=== PATIENT | male | born 1960 | race African-American/Black ===

== ENCOUNTER 2019-03-22 10:17 | Observation (INO) | payer SELFPAY ==
--- NOTE | 2019-03-22 10:47 | ER Document Report ---
ED Medical Screen (RME) - General Chief Complaint: Vomiting Stated Complaint: VOMITING, LIGHTHEADED Time Seen by Provider: 03/22/19 10:43 Mode of Arrival: Ambulatory Information source: Patient Notes: Patient presents stating that he had abdominal pain since yesterday and had an episode of vomiting blood yesterday and noticed blood in his stool yesterday. Patient does report feeling lightheaded. Patient has not had any vomiting today and has not noted any blood in the stool today. Patient denies any fever. Patient does admit to drinking alcohol daily. I have greeted and performed a rapid initial assessment of this patient. A comprehensive ED assessment and evaluation of the patient, analysis of test results and completion of the medical decision making process will be conducted by additional ED providers. TRAVEL OUTSIDE OF THE [place] IN LAST 30 DAYS: No - Related Data Allergies/Adverse Reactions: No Known Allergies Allergy (Verified 03/22/19 10:39) Past Medical History - Immunizations Hx Diphtheria, Pertussis, Tetanus Vaccination: Yes Physical Exam - Vital signs Vitals: Temp Pulse Resp BP Pulse Ox 98.3 F 103 H 18 158/84 H 100 03/22/19 10:21 03/22/19 10:21 03/22/19 10:21 03/22/19 10:21 03/22/19 10:21 - Abdominal Tenderness: Tender - Epigastric Course - Vital Signs Vital signs: Temp Pulse Resp BP Pulse Ox 98.3 F 103 H 18 158/84 H 100 03/22/19 10:21 03/22/19 10:21 03/22/19 10:21 03/22/19 10:21 03/22/19 10:21
[2019-03-22] MEDS ORDERED: LIDOCAINE 2% VISCOUS SOLN 20 ML UDCUP PO ONE (11:08)
[2019-03-22] MEDS ORDERED: MAG HYDROX/AL HYDROX/SIMETH SUSP 30 ML UDCUP PO ONE (11:08)
[2019-03-22 11:22] LABS: AMORPHOUS SEDIMENT,URINE TRACE /HPF; APPEARANCE,URINE CLOUDY; BILIRUBIN,URINE NEGATIVE (NEGATIVE); COLOR,URINE YELLOW; GLUCOSE, URINE NEGATIVE (NEGATIVE); KETONES,URINE NEGATIVE (NEGATIVE); LEUKOCYTE ESTERASE,URINE NEGATIVE (NEGATIVE); NITRITE,URINE NEGATIVE (NEGATIVE); PROTEIN,URINE 30 mg/dL (NEGATIVE); URINE SPECIFIC GRAVITY 1.024
[2019-03-22 11:24] LABS: INTERNATIONAL RATION (INR) 1.05; PROTHROMBIN TIME 13.7 SEC (11.4-15.4)
[2019-03-22 11:25] LABS: PARTIAL THROMBOPLASTIN TIME 31.8 SEC (23.5-35.8)
[2019-03-22 11:39] LABS: ALBUMIN 3.7 g/dL (3.5-5.0); ALKALINE PHOSPHATASE 63 U/L (38-126); ANION GAP 5 (5-19); ASPARTATE AMINO TRANSFERASE 30 U/L (17-59); BILIRUBIN,DIRECT 0.1 mg/dL (0.0-0.4); BILIRUBIN,TOTAL 0.3 mg/dL (0.2-1.3); BLOOD UREA NITROGEN 18 mg/dL (7-20); CALCIUM 9.1 mg/dL (8.4-10.2); CARBON DIOXIDE 30 mmol/L (22-30); CHLORIDE 103 mmol/L (98-107); GLUCOSE 102 mg/dL (75-110); POTASSIUM 3.9 mmol/L (3.6-5.0); TOTAL PROTEIN 6.7 g/dL (6.3-8.2)
[2019-03-22 12:21] LABS: ABSOLUTE BASOPHILS # (AUTO) 0.1 10^3/uL (0.0-0.2); ABSOLUTE EOSINOPHILS # (AUTO) 0.1 10^3/uL (0.0-0.6); ABSOLUTE MONOCYTES (AUTO) 0.5 10^3/uL (0.1-1.4); ABSOLUTE NEUT (AUTO) 4.9 10^3/uL (1.7-8.2); HEMOGLOBIN 8.8 g/dL (13.5-17.0); TOTAL CELLS COUNTED % (AUTO) 100 %; WHITE BLOOD COUNT 7.4 10^3/uL (4.0-10.5)
[2019-03-22 12:23] LABS: ABSOLUTE LYMPHOCYTES (AUTO) 1.9 10^3/uL (0.5-4.7); BASOPHILS % (AUTO) 0.8 % (0-2); HEMATOCRIT 25.9 % (37.9-51.0); LYMPHOCYTES % (AUTO) 25.9 % (13-45); MEAN CORPUSCULAR HEMOGLOBIN 31.3 pg (27.0-33.4); MEAN CORPUSCULAR HGB CONC 33.8 g/dL (32.0-36.0); MEAN CORPUSCULAR VOLUME 93 fl (80-97); MONOCYTES % (AUTO) 6.5 % (3-13); PLATELET COUNT 241 10^3/uL (150-450); RED CELL DISTRIBUTION WIDTH 14.2 % (11.5-14.0); SEGMENTED NEUTROPHILS % (AUTO) 65.8 % (42-78)
[2019-03-22] MEDS ORDERED: MORPHINE SULFATE 10 MG/ML INJ IV ONE (16:45)
--- NOTE | 2019-03-22 16:47 | ER Document Report ---
ED General - General Chief Complaint: Vomiting Stated Complaint: VOMITING, LIGHTHEADED Time Seen by Provider: 03/22/19 10:43 Mode of Arrival: Ambulatory Notes: 58-year-old male presents with epigastric abdominal pain, nausea/vomiting, blood in stool, blood in emesis, and lightheadedness. Patient states started yester day. Patient describes blood in stool as dark and describes blood in emesis as dark. Patient states 30 pound loss and in the past 3 years without trying. Patient also states he has been taking 7 to 8 tablets of Jennifer-Denmark original daily for the past 2 years. Patient denies any chest pain, dyspnea, diarrhea, constipation fever, chills. Patient denies any history of blood transfusion. Patient denies any current nausea or vomiting. TRAVEL OUTSIDE OF THE [place] IN LAST 30 DAYS: No - Related Data Allergies/Adverse Reactions: No Known Allergies Allergy (Verified 03/22/19 10:39) Home Medications: Jennifer-seltzer Past Medical History - General Information source: Patient - Social History Smoking Status: Current Every Day Smoker Frequency of alcohol use: Heavy Drug Abuse: None Family History: Reviewed & Not Pertinent Patient has suicidal ideation: No Patient has homicidal ideation: No - Immunizations Hx Diphtheria, Pertussis, Tetanus Vaccination: Yes Review of Systems - Review of Systems Notes: Constitutional: Negative for fever. HENT: Negative for sore throat. Eyes: Negative for visual changes. Cardiovascular: Negative for chest pain. Respiratory: Negative for shortness of breath. Gastrointestinal: Positive for abdominal pain and vomiting and blood in emesis/stool. Negative for diarrhea constipation. Genitourinary: Negative for dysuria. Musculoskeletal: Negative for back pain. Skin: Negative for rash. Neurological: Positive for lightheadedness. Negative for headaches, weakness or numbness. 10 point ROS negative except as marked above and in HPI. Physical Exam - Vital signs Vitals: Temp Pulse Resp BP Pulse Ox 98.3 F 103 H 18 158/84 H 100 03/22/19 10:21 03/22/19 10:21 03/22/19 10:21 03/22/19 10:21 03/22/19 10:21 - Notes Notes: GENERAL: Well-appearing, well-nourished and in no acute distress. HEAD: Atraumatic, normocephalic. EYES: Extraocular movements intact, sclera anicteric, conjunctiva are normal. NECK: Normal range of motion, supple without lymphadenopathy or JVD. LUNGS: Breath sounds clear to auscultation bilaterally and equal. No wheezes rales or rhonchi. HEART: Regular rate and rhythm without murmurs, rubs or gallops. ABDOMEN: Soft, mild tenderness to epigastric area. No guarding, no rebound. No masses appreciated. EXTREMITIES: Normal range of motion, no pitting or edema. No clubbing or cyanosis. NEUROLOGICAL: Cranial nerves II through XII grossly intact. Normal speech, normal gait. PSYCH: Normal mood, normal affect. SKIN: Warm, Dry, normal turgor, no rashes or lesions noted. Course - Re-evaluation Re-evalutation: 03/22/19 58-year-old male presents with epigastric pain, nausea, vomiting, blood in emesis/stool, and lightheadedness. Patient reports weight loss of 30 pounds in 3 years and taking 7 to 8 tablets of Jennifer-Denmark daily for 2 years. Initial work-up done in triage shows a hemoglobin of 8.8 but is otherwise unremarkable. Patient has been here approximately 5 to 6 hours. Repeat CBC ordered. 03/22/19 17:12 EKG shows NSR at [address] elevation. 03/22/19 17:34 Per RN fecal hemoccult grossly dark tarry/positive. 03/22/19 18:[address] Veronica, surgicalist, who states he will consult once pt is admitted by medicine. 03/22/19 18:[address] Stoll who states he will pass along information to night time hospitalist, Dr. Enmanuel Yoon. 03/22/19 19:[address] Enmanuel Yoon who states orders are in and requests tele bed. - Vital Signs Vital signs: Temp Pulse Resp BP Pulse Ox 97.7 F 87 18 135/63 H 98 03/22/19 19:40 03/22/19 19:40 03/22/19 10:21 03/22/19 19:40 03/22/19 19:40 - Laboratory Result Diagrams: 03/22/19 17:23 03/22/19 11:00 Laboratory results interpreted by me: 11/25/19 11/25/19 11/25/19 11:00 11:00 17:23 RBC 2.80 L 2.63 L Hgb 8.8 L 8.3 L Hct 25.9 L 24.2 L RDW 14.2 H 14.3 H Urine Protein 30 H Urine Urobilinogen 2.0 H Discharge - Discharge Clinical Impression: Lower GI bleed Anemia Qualifiers: Anemia type: unspecified type Qualified Code(s): D64.9 - Anemia, unspecified Condition: Stable Disposition: ADMITTED INPATIENT Admitting Provider: Car (Hospitalist) Unit Admitted: Telemetry
--- NOTE | 2019-03-22 17:04 | RADIOLOGY REPORT (SQ) ---
EXAM DESCRIPTION: CHEST 2 VIEWS COMPLETED DATE/TIME: 03/22/2019 4:56 pm REASON FOR STUDY: hemoptysis COMPARISON: None. EXAM PARAMETERS: NUMBER OF VIEWS: two views TECHNIQUE: Digital Frontal and Lateral radiographic views of the chest acquired. RADIATION DOSE: NA LIMITATIONS: none FINDINGS: LUNGS AND PLEURA: No opacities, masses or pneumothorax. No pleural effusion. MEDIASTINUM AND HILAR STRUCTURES: No masses or contour abnormalities. HEART AND VASCULAR STRUCTURES: Heart normal size. No evidence for failure. BONES: No acute findings. HARDWARE: None in the chest. OTHER: No other significant finding. IMPRESSION: NO ACUTE RADIOGRAPHIC FINDING IN THE CHEST. TECHNICAL DOCUMENTATION: JOB ID: [id number] [employer]- All Rights Reserved Reading location - IP/workstation name: [email or web address]
[2019-03-22 17:43] LABS: HEMATOCRIT 24.2 % (37.9-51.0); HEMOGLOBIN 8.3 g/dL (13.5-17.0); MEAN CORPUSCULAR HEMOGLOBIN 31.7 pg (27.0-33.4); MEAN CORPUSCULAR HGB CONC 34.5 g/dL (32.0-36.0); MEAN CORPUSCULAR VOLUME 92 fl (80-97); PLATELET COUNT 228 10^3/uL (150-450); RED BLOOD COUNT 2.63 10^6/uL (4.35-5.55); RED CELL DISTRIBUTION WIDTH 14.3 % (11.5-14.0); WHITE BLOOD COUNT 6.3 10^3/uL (4.0-10.5)
[2019-03-22] MEDS ORDERED: PANTOPRAZOLE SODIUM 40 MG VIAL IV ONE (17:54)
[2019-03-22] MEDS ORDERED: HYDROMORPHONE HCL INJ/PF 2 MG/ML AMPULE IV ONE (18:03)
[2019-03-22] MEDS ORDERED: IPRATROPIUM/ALBUTEROL 0.5-2.5 MG/3 ML AMPUL NEB PRN (19:06)
[2019-03-22] MEDS ORDERED: NORMAL SALINE 1000 ML 1,000 ML IV SCH (19:15)
[2019-03-22 19:21] LABS: ABSOLUTE RETICS # 0.038 10^6/uL (0.028-0.122); RETICULOCYTE COUNT (AUTO) 1.43 % (0.66-2.85)
[2019-03-22 19:27] LABS: IRON(TIBC) 61.7 ug/dL (49-181)
[2019-03-22] MEDS: NORMAL SALINE 1000 ML 1,000 ML IV PRN (20:16)
[2019-03-22] MEDS ORDERED: DEXTROSE 50%-WATER 25 GM/50 ML DISP.SYRIN IV PRN ×2 (21:11)
[2019-03-22] MEDS ORDERED: DEXTROSE 40% GEL 15 GM TUBE PO PRN ×2 (21:11)
[2019-03-22] MEDS ORDERED: GLUCAGON,HUMAN RECOMB 1 MG INJ SUBCUT PRN (21:11)
--- NOTE | 2019-03-22 21:36 | PDOC CONSULTATION ---
Consultation Consult Date: 03/22/19 Attending physician:: REESE HURST Provider Consulted: PIA MIRANDA Consult reason:: GI bleed History of Present Illness Admission Date/PCP: 03/22/19 19:48 Patient complains of: Abdominal pain History of Present Illness: MARCO GILES is a 58 year old male Presents to the emerge department via ground rescue complaining of acute onset abdominal pain nausea, hematemesis and one episode of bloody bowel movement. Patient was seen in emergency department was hemodynamically stable, found to have a hemoglobin 8.3. Medicine was consulted, patient admitted to the hospital service with surgery consulting for blood loss anemia.. Patient has a 2-year history of a 25 pound weight loss, and anorexia. He denies previous GI bleed; he was told he has an ulcer but never had endoscopy. He takes no prescription medications. He has not had a colonoscopy. There is no family history of gastrointestinal malignancy. Past Medical History Past Medical History: HTN Past Surgical History Past Surgical History: Reports: None Social History Information Source: Patient Smoking Status: Current Every Day Smoker Frequency of Alcohol Use: Heavy Hx Recreational Drug Use: No Hx Prescription Drug Abuse: No Family History Family History: None, Reviewed & Not Pertinent Parental Family History Reviewed: No Children Family History Reviewed: No Sibling(s) Family History Reviewed.: No Medication/Allergy Home Medications: No Home Medications 03/22/19 Allergies/Adverse Reactions: No Known Allergies Allergy (Verified 03/22/19 10:39) Review of Systems Constitutional: PRESENT: as per HPI Eyes: ABSENT: visual disturbances Ears: ABSENT: hearing changes Cardiovascular: ABSENT: chest pain, dyspnea on exertion, edema, orthropnea, palpitations Respiratory: ABSENT: cough, hemoptysis Gastrointestinal: PRESENT: abdominal pain, hematemesis, melena Musculoskeletal: ABSENT: joint swelling Integumentary: ABSENT: rash, wounds Neurological: ABSENT: abnormal gait, abnormal speech, confusion, dizziness, focal weakness, syncope Psychiatric: ABSENT: anxiety, depression, homidical ideation, suicidal ideation Endocrine: ABSENT: cold intolerance, heat intolerance, polydipsia, polyuria Hematologic/Lymphatic: ABSENT: easy bleeding, easy bruising Physical Exam Vital Signs: Temp Pulse Resp BP Pulse Ox 97.7 F 87 18 135/63 H 98 03/22/19 19:40 03/22/19 19:40 03/22/19 10:21 03/22/19 19:40 03/22/19 19:40 Intake & Output 03/21/19 03/22/19 03/23/19 06:59 06:59 06:59 Weight 69.3 kg General appearance: PRESENT: no acute distress Head exam: PRESENT: normocephalic Eye exam: PRESENT: EOMI Mouth exam: PRESENT: dry mucosa Neck exam: PRESENT: full ROM Respiratory exam: PRESENT: clear to auscultation mary Cardiovascular exam: PRESENT: RRR Pulses: PRESENT: normal carotid pulses, normal radial pulses, normal femoral pulses, normal dorsalis pedis pul GI/Abdominal exam: PRESENT: other - epigastric tenderness; no rigidity no peritoneal signs no hernia. Rectal exam: PRESENT: deferred Extremities exam: PRESENT: full ROM Musculoskeletal exam: PRESENT: full ROM Neurological exam: PRESENT: oriented to person, oriented to place, oriented to time, oriented to situation Psychiatric exam: PRESENT: appropriate affect Skin exam: PRESENT: dry Results Laboratory Results: 03/22/19 17:23 03/22/19 11:00 03/22/19 03/22/19 03/22/19 11:00 11:00 11:00 WBC 7.4 RBC 2.80 L Hgb 8.8 L Hct 25.9 L MCV 93 MCH 31.3 MCHC 33.8 RDW 14.2 H Plt Count 241 Seg Neutrophils % 65.8 Retic Count (auto) Sodium 138.2 Potassium 3.9 Chloride 103 Carbon Dioxide 30 Anion Gap 5 BUN 18 Creatinine 0.80 Est GFR ( Amer) > 60 Glucose 102 Calcium 9.1 Iron TIBC % Saturation Ferritin Total Bilirubin 0.3 AST 30 Alkaline Phosphatase 63 Total Protein 6.7 Albumin 3.7 Lipase 78.6 Vitamin B12 Folate Urine Color YELLOW Urine Appearance CLOUDY Urine pH 8.0 Ur Specific [place] 1.024 Urine Protein 30 H Urine Glucose (UA) NEGATIVE Urine Ketones NEGATIVE Urine Blood NEGATIVE Urine Nitrite NEGATIVE Ur Leukocyte Esterase NEGATIVE Urine WBC (Auto) 1 Urine RBC (Auto) 0 Blood Type Antibody Screen 03/22/19 03/22/19 03/22/19 11:00 17:23 17:23 WBC 6.3 RBC 2.63 L Hgb 8.3 L Hct 24.2 L MCV 92 MCH 31.7 MCHC 34.5 RDW 14.3 H Plt Count 228 Seg Neutrophils % Retic Count (auto) 1.43 Sodium Potassium Chloride Carbon Dioxide Anion Gap BUN Creatinine Est GFR ( Amer) Glucose Calcium Iron TIBC % Saturation Ferritin Total Bilirubin AST Alkaline Phosphatase Total Protein Albumin Lipase Vitamin B12 Folate Urine Color Urine Appearance Urine pH Ur Specific [place] Urine Protein Urine Glucose (UA) Urine Ketones Urine Blood Urine Nitrite Ur Leukocyte Esterase Urine WBC (Auto) Urine RBC (Auto) Blood Type O POSITIVE Antibody Screen NEGATIVE 03/22/19 17:23 WBC RBC Hgb Hct MCV MCH MCHC RDW Plt Count Seg Neutrophils % Retic Count (auto) Sodium Potassium Chloride Carbon Dioxide Anion Gap BUN Creatinine Est GFR ( Amer) Glucose Calcium Iron 61.7 TIBC 277 % Saturation 22 Ferritin 52.10 Total Bilirubin AST Alkaline Phosphatase Total Protein Albumin Lipase Vitamin B12 317.0 Folate 15.70 Urine Color Urine Appearance Urine pH Ur Specific [place] Urine Protein Urine Glucose (UA) Urine Ketones Urine Blood Urine Nitrite Ur Leukocyte Esterase Urine WBC (Auto) Urine RBC (Auto) Blood Type Antibody Screen 03/22/19 11:00 Troponin I < 0.012 Impressions: Chest X-Ray 03/22/19 16:23 IMPRESSION: NO ACUTE RADIOGRAPHIC FINDING IN THE CHEST. Assessment & Plan - Diagnosis (1) Acute GI bleeding Is this a current diagnosis for this admission?: Yes Plan: Impression: Acute presentation of GI bleed, likely chronic however given h emodynamic stability. Highly suspicious for upper GI source such as gastritis peptic ulcer disease or malignancy given patient's history of weight loss, and anorexia. At times exacerbated by smoking and alcohol use. Recommendations: 1. Agree with admission, IV fluids, n.p.o. after midnight 2. We provide bowel prep, and plan for upper and lower endoscopy tomorrow, possible biopsy, possible polypectomy, Dr. Cal Savage, surgical list of the day. This was explained to the patient and his family. (2) Lower GI bleed Is this a current diagnosis for this admission?: Yes Plan: IMpression: (3) Smoker Is this a current diagnosis for this admission?: Yes (4) ETOH abuse Is this a current diagnosis for this admission?: Yes (5) Anemia Qualifiers: Anemia type: unspecified type Qualified Code(s): D64.9 - Anemia, unspecified - Time Time Spent: 30 to 50 Minutes Smoking Cessation Education: over 10 minutes Medications reviewed and adjusted accordingly: Yes Anticipated discharge: Home - Inpatient Certification Based on my medical assessment, after consideration of the patient's comorbidities, presenting symptoms, or acuity I expect that the services needed warrant INPATIENT care.: Yes I certify that my determination is in accordance with my understanding of Medicare's requirements for reasonable and necessary INPATIENT services [42 CFR 412.3e].: Yes Medical Necessity: Need For IV Fluids
[2019-03-22] MEDS ORDERED: PEG 3350/NA SULF,BICARB,CL/KCL 4000 ML PO ONE (22:30)
--- NOTE | 2019-03-22 23:45 | EKG REPORT ---
SEVERITY:- BORDERLINE ECG - SINUS RHYTHM BORDERLINE T WAVE ABNORMALITIES MINIMAL ST ELEVATION, ANTERIOR LEADS : Confirmed by: Tahira Gale 22-Mar-2019 23:45:03
--- NOTE | 2019-03-23 03:56 | PDOC H&P ---
History of Present Illness Admission Date/PCP: 03/22/19 19:48 Patient complains of: Black stools History of Present Illness: MARCO GILES is a 58 year old male with a past medical history of alcohol and tobacco dependence and chronic dyspepsia. Patient has noted a single episode of vomiting bright red blood with subsequent black stools over the last week pro mpting evaluation emergency room where he is found to have heme positive stools and anemia. He denies previous episode he denies focal pain, recent change of medications but admits to 3-4 Jennifer-Villanueva [id number] medications on a daily basis which provides temporary relief. In the emergency room is found to have hemoglobin of 8.3 started on IV Protonix and referred to the hospitalist for admission. Past Medical History Cardiac Medical History: Denies: Congestive Heart Failure, Myocardial Infarction, Hypertension Pulmonary Medical History: Denies: Asthma, Bronchitis, Chronic Obstructive Pulmonary Disease (COPD), P[place], Tuberculosis Neurological Medical History: Denies: Seizures Renal/ Medical History: Denies: End Stage Renal Disease GI Medical History: Denies: Cirrhosis, Gastroesophageal Reflux Disease Musculoskeltal Medical History: Denies: Arthritis Psychiatric Medical History: Reports: Alcohol Dependency, Tobacco Dependency Denies: Bipolar Disorder, Depression Hematology: Denies: Anemia, Bleeding Tendencies Past Surgical History Past Surgical History: Reports: None Social History Information Source: Patient Lives with: Family Smoking Status: Current Some Day Smoker Frequency of Alcohol Use: Heavy Hx Recreational Drug Use: No Hx Prescription Drug Abuse: No - Advance Directive Resuscitation Status: Full Code Family History Family History: None Parental Family History Reviewed: Yes Children Family History Reviewed: Yes Sibling(s) Family History Reviewed.: Yes Medication/Allergy Home Medications: No Home Medications 03/22/19 Allergies/Adverse Reactions: No Known Allergies Allergy (Verified 03/22/19 10:39) Review of Systems Constitutional: PRESENT: as per HPI, anorexia, fatigue, weakness, weight loss - 30 pound weight loss in the last 2 years Eyes: ABSENT: visual disturbances Ears: ABSENT: hearing changes Cardiovascular: ABSENT: chest pain, dyspnea on exertion, edema, orthropnea, palpitations Respiratory: ABSENT: cough, hemoptysis Gastrointestinal: PRESENT: as per HPI, abdominal pain, coffee ground emesis, hematemesis, melena, nausea, vomiting. ABSENT: bloating, constipation Genitourinary: ABSENT: dysuria, hematuria Musculoskeletal: ABSENT: joint swelling Integumentary: ABSENT: rash, wounds Neurological: ABSENT: abnormal gait, abnormal speech, confusion, dizziness, focal weakness, syncope Psychiatric: ABSENT: anxiety, depression, homidical ideation, suicidal ideation Endocrine: ABSENT: cold intolerance, heat intolerance, polydipsia, polyuria Hematologic/Lymphatic: ABSENT: easy bleeding, easy bruising Physical Exam Vital Signs: Temp Pulse Resp BP Pulse Ox 98.4 F 86 17 128/71 H 100 03/23/19 03:25 03/23/19 03:25 03/23/19 03:25 03/23/19 03:25 03/23/19 03:25 Intake & Output 03/21/19 03/22/19 03/23/19 11:59 11:59 11:59 Intake Total 1150 Balance 1150 Weight 69.3 kg 69.1 kg General appearance: PRESENT: no acute distress, cooperative, thin, well- developed, well-nourished. ABSENT: disheveled Head exam: PRESENT: atraumatic, normocephalic Eye exam: PRESENT: conjunctiva pink, EOMI, PERRLA. ABSENT: scleral icterus Ear exam: PRESENT: bleeding Mouth exam: PRESENT: moist, tongue midline Neck exam: ABSENT: carotid bruit, JVD, lymphadenopathy, thyromegaly Respiratory exam: PRESENT: clear to auscultation mary. ABSENT: rales, rhonchi, wheezes Cardiovascular exam: PRESENT: RRR. ABSENT: diastolic murmur, rubs, systolic murmur Pulses: PRESENT: normal dorsalis pedis pul Vascular exam: PRESENT: normal capillary refill GI/Abdominal exam: PRESENT: normal bowel sounds, soft, tenderness - Epigastric. ABSENT: distended, guarding, mass, organolmegaly, rebound Rectal exam: PRESENT: deferred Neurological exam: PRESENT: alert, awake, oriented to person, oriented to place, oriented to time, oriented to situation, CN II-XII grossly intact. ABSENT: motor sensory deficit Psychiatric exam: PRESENT: appropriate affect, normal mood. ABSENT: homicidal ideation, suicidal ideation Skin exam: PRESENT: dry, intact, warm. ABSENT: cyanosis, rash Results Laboratory Results: 03/22/19 17:23 03/22/19 11:00 03/22/19 03/22/19 03/22/19 11:00 11:00 11:00 WBC 7.4 RBC 2.80 L Hgb 8.8 L Hct 25.9 L MCV 93 MCH 31.3 MCHC 33.8 RDW 14.2 H Plt Count 241 Seg Neutrophils % 65.8 Retic Count (auto) Sodium 138.2 Potassium 3.9 Chloride 103 Carbon Dioxide 30 Anion Gap 5 BUN 18 Creatinine 0.80 Est GFR ( Amer) > 60 Glucose 102 Calcium 9.1 Iron TIBC % Saturation Ferritin Total Bilirubin 0.3 AST 30 Alkaline Phosphatase 63 Total Protein 6.7 Albumin 3.7 Lipase 78.6 Vitamin B12 Folate Urine Color YELLOW Urine Appearance CLOUDY Urine pH 8.0 Ur Specific [place] 1.024 Urine Protein 30 H Urine Glucose (UA) NEGATIVE Urine Ketones NEGATIVE Urine Blood NEGATIVE Urine Nitrite NEGATIVE Ur Leukocyte Esterase NEGATIVE Urine WBC (Auto) 1 Urine RBC (Auto) 0 Blood Type Antibody Screen 03/22/19 03/22/19 03/22/19 11:00 17:23 17:23 WBC 6.3 RBC 2.63 L Hgb 8.3 L Hct 24.2 L MCV 92 MCH 31.7 MCHC 34.5 RDW 14.3 H Plt Count 228 Seg Neutrophils % Retic Count (auto) 1.43 Sodium Potassium Chloride Carbon Dioxide Anion Gap BUN Creatinine Est GFR ( Amer) Glucose Calcium Iron TIBC % Saturation Ferritin Total Bilirubin AST Alkaline Phosphatase Total Protein Albumin Lipase Vitamin B12 Folate Urine Color Urine Appearance Urine pH Ur Specific [place] Urine Protein Urine Glucose (UA) Urine Ketones Urine Blood Urine Nitrite Ur Leukocyte Esterase Urine WBC (Auto) Urine RBC (Auto) Blood Type O POSITIVE Antibody Screen NEGATIVE 03/22/19 17:23 WBC RBC Hgb Hct MCV MCH MCHC RDW Plt Count Seg Neutrophils % Retic Count (auto) Sodium Potassium Chloride Carbon Dioxide Anion Gap BUN Creatinine Est GFR ( Amer) Glucose Calcium Iron 61.7 TIBC 277 % Saturation 22 Ferritin 52.10 Total Bilirubin AST Alkaline Phosphatase Total Protein Albumin Lipase Vitamin B12 317.0 Folate 15.70 Urine Color Urine Appearance Urine pH Ur Specific [place] Urine Protein Urine Glucose (UA) Urine Ketones Urine Blood Urine Nitrite Ur Leukocyte Esterase Urine WBC (Auto) Urine RBC (Auto) Blood Type Antibody Screen 03/22/19 11:00 Troponin I < 0.012 Impressions: Chest X-Ray 03/22/19 16:23 IMPRESSION: NO ACUTE RADIOGRAPHIC FINDING IN THE CHEST. Assessment and Plan - Diagnosis (1) Acute GI bleeding Is this a current diagnosis for this admission?: Yes Plan: Likely acute on chronic upper GI bleed such as alcoholic gastritis however tobacco and weight loss concerning for underlying malignancy, IV Protonix ordered, n.p.o., follow-up anemia labs, serial CBC, surgical consult for endoscopy. Transfuse hemoglobin as needed less than 7 (2) Anemia Qualifiers: Anemia type: unspecified type Qualified Code(s): D64.9 - Anemia, unspecified Is this a current diagnosis for this admission?: Yes Plan: Likely secondary to #1, follow-up anemia labs (3) ETOH abuse Is this a current diagnosis for this admission?: Yes Plan: Thiamine, folate, no history of alcohol withdrawal (4) Smoker Is this a current diagnosis for this admission?: Yes Plan: Declines nicotine replacement, tobacco cessation counseling provided. (5) Weight loss Is this a current diagnosis for this admission?: Yes Plan: If endoscopy does not reveal an etiology consider screening chest CT for 50 pack years of smoking. - Time Time Spent with patient: 35 or more minutes - Inpatient Certification Medical Necessity: Need Close Monitoring Due to Risk of Patient Decompensation
[2019-03-23 05:33] LABS: ABSOLUTE EOSINOPHILS # (AUTO) 0.1 10^3/uL (0.0-0.6); ABSOLUTE LYMPHOCYTES (AUTO) 1.6 10^3/uL (0.5-4.7); ABSOLUTE MONOCYTES (AUTO) 0.4 10^3/uL (0.1-1.4); ABSOLUTE NEUT (AUTO) 3.2 10^3/uL (1.7-8.2); BASOPHILS % (AUTO) 0.7 % (0-2); LYMPHOCYTES % (AUTO) 29.3 % (13-45); MEAN CORPUSCULAR HEMOGLOBIN 31.8 pg (27.0-33.4); MEAN CORPUSCULAR HGB CONC 34.5 g/dL (32.0-36.0); MEAN CORPUSCULAR VOLUME 92 fl (80-97); MONOCYTES % (AUTO) 7.7 % (3-13); PLATELET COUNT 200 10^3/uL (150-450); RED BLOOD COUNT 2.28 10^6/uL (4.35-5.55); RED CELL DISTRIBUTION WIDTH 14.3 % (11.5-14.0); SEGMENTED NEUTROPHILS % (AUTO) 60.3 % (42-78); TOTAL CELLS COUNTED % (AUTO) 100 %; WHITE BLOOD COUNT 5.4 10^3/uL (4.0-10.5)
[2019-03-23 05:55] LABS: ANION GAP 5 (5-19); BLOOD UREA NITROGEN 9 mg/dL (7-20); CALCIUM 8.6 mg/dL (8.4-10.2); CARBON DIOXIDE 27 mmol/L (22-30); CHLORIDE 107 mmol/L (98-107); GLUCOSE 89 mg/dL (75-110); HEMOGLOBIN 7.2 g/dL (13.5-17.0); POTASSIUM 4.5 mmol/L (3.6-5.0)
[2019-03-23] MEDS: NORMAL SALINE 1000 ML 1,000 ML IV PRN (06:11)
[2019-03-23] MEDS ORDERED: PANTOPRAZOLE SODIUM 40 MG VIAL IV ONE (06:14)
[2019-03-23] MEDS: NORMAL SALINE 100 ML with PANTOPRAZOLE SODIUM 80 MG IV PRN ×4 (06:21→19:19)
[2019-03-23] MEDS ORDERED: PROPOFOL INJ 200 MG/20 ML VIAL IV ONE ×2 (08:01→11:53)
[2019-03-23] MEDS ORDERED: LIDOCAINE 2% INJ (20 MG/ML) 20 ML MDV ONE (08:02)
--- NOTE | 2019-03-23 09:51 | PDOC PROGRESS REPORT ---
Subjective Progress Note for:: 03/23/19 Subjective:: 58-year-old male with melanotic stool, anemia, and a history of coffee-ground emesis several days ago. The patient has a large amount of alcohol intake, smokes, and uses frequent [place]. He has never had a colonoscopy. His last bowel movement was yesterday evening and was normal. He denies any lacey hematemesis or hematochezia. Today he denies abdominal pain, chest pain, fevers, chills, orthostasis, blurry vision, headache, malaise, fatigue, shortness of breath. Reason For Visit: GI BLEED ANEMIA Physical Exam Vital Signs: Temp Pulse Resp BP Pulse Ox 98.7 F 77 16 133/66 H 100 03/23/19 07:00 03/23/19 09:01 03/23/19 09:01 03/23/19 07:00 03/23/19 09:01 Intake & Output 03/22/19 03/23/19 03/24/19 06:59 06:59 06:59 Intake Total 2150 860 Balance 2150 860 Weight 69.4 kg General appearance: PRESENT: no acute distress Head exam: PRESENT: atraumatic, normocephalic Eye exam: PRESENT: EOMI, PERRLA. ABSENT: scleral icterus Mouth exam: PRESENT: moist, neck supple Neck exam: ABSENT: tenderness, thyromegaly, tracheal deviation, tracheostomy Respiratory exam: PRESENT: chest wall tenderness, unlabored. ABSENT: tachypnea, wheezes Cardiovascular exam: PRESENT: RRR Pulses: PRESENT: normal radial pulses GI/Abdominal exam: PRESENT: soft. ABSENT: distended, guarding, tenderness Rectal exam: PRESENT: deferred Extremities exam: ABSENT: clubbing Musculoskeletal exam: ABSENT: deformity Neurological exam: PRESENT: alert, awake, oriented to person, oriented to place, oriented to time, CN II-XII grossly intact Psychiatric exam: ABSENT: agitated, anxious, depressed Focused psych exam: ABSENT: delusional Skin exam: ABSENT: cyanosis, erythema, jaundice Results Laboratory Results: 03/23/19 04:16 03/23/19 04:16 03/22/19 03/22/19 03/22/19 11:00 11:00 11:00 WBC 7.4 RBC 2.80 L Hgb 8.8 L Hct 25.9 L MCV 93 MCH 31.3 MCHC 33.8 RDW 14.2 H Plt Count 241 Seg Neutrophils % 65.8 Retic Count (auto) Sodium 138.2 Potassium 3.9 Chloride 103 Carbon Dioxide 30 Anion Gap 5 BUN 18 Creatinine 0.80 Est GFR ( Amer) > 60 Glucose 102 Calcium 9.1 Iron TIBC % Saturation Ferritin Total Bilirubin 0.3 AST 30 Alkaline Phosphatase 63 Total Protein 6.7 Albumin 3.7 Lipase 78.6 Vitamin B12 Folate Urine Color YELLOW Urine Appearance CLOUDY Urine pH 8.0 Ur Specific [facility] 1.024 Urine Protein 30 H Urine Glucose (UA) NEGATIVE Urine Ketones NEGATIVE Urine Blood NEGATIVE Urine Nitrite NEGATIVE Ur Leukocyte Esterase NEGATIVE Urine WBC (Auto) 1 Urine RBC (Auto) 0 Blood Type Antibody Screen 03/22/19 03/22/19 03/22/19 11:00 17:23 17:23 WBC 6.3 RBC 2.63 L Hgb 8.3 L Hct 24.2 L MCV 92 MCH 31.7 MCHC 34.5 RDW 14.3 H Plt Count 228 Seg Neutrophils % Retic Count (auto) 1.43 Sodium Potassium Chloride Carbon Dioxide Anion Gap BUN Creatinine Est GFR ( Amer) Glucose Calcium Iron TIBC % Saturation Ferritin Total Bilirubin AST Alkaline Phosphatase Total Protein Albumin Lipase Vitamin B12 Folate Urine Color Urine Appearance Urine pH Ur Specific [facility] Urine Protein Urine Glucose (UA) Urine Ketones Urine Blood Urine Nitrite Ur Leukocyte Esterase Urine WBC (Auto) Urine RBC (Auto) Blood Type O POSITIVE Antibody Screen NEGATIVE 03/22/19 03/23/19 03/23/19 17:23 04:16 04:16 WBC 5.4 RBC 2.28 L Hgb 7.2 L Hct 21.0 L MCV 92 MCH 31.8 MCHC 34.5 RDW 14.3 H Plt Count 200 Seg Neutrophils % 60.3 Retic Count (auto) Sodium 139.2 Potassium 4.5 Chloride 107 Carbon Dioxide 27 Anion Gap 5 BUN 9 Creatinine 0.74 Est GFR ( Amer) > 60 Glucose 89 Calcium 8.6 Iron 61.7 TIBC 277 % Saturation 22 Ferritin 52.10 Total Bilirubin AST Alkaline Phosphatase Total Protein Albumin Lipase Vitamin B12 317.0 Folate 15.70 Urine Color Urine Appearance Urine pH Ur Specific [facility] Urine Protein Urine Glucose (UA) Urine Ketones Urine Blood Urine Nitrite Ur Leukocyte Esterase Urine WBC (Auto) Urine RBC (Auto) Blood Type Antibody Screen 03/22/19 11:00 Troponin I < 0.012 Impressions: Chest X-Ray 03/22/19 16:23 IMPRESSION: NO ACUTE RADIOGRAPHIC FINDING IN THE CHEST. Assessment & Plan - Diagnosis (1) Melena Is this a current diagnosis for this admission?: Yes (2) Anemia Qualifiers: Anemia type: unspecified type Qualified Code(s): D64.9 - Anemia, unspecified Is this a current diagnosis for this admission?: Yes - Time Time Spent with patient: Less than 15 minutes - Plan Summary Plan Summary: This is a 58-year-old male with melena and a history of coffee-ground emesis last week. He is anemic. He has never had a colonoscopy. I have recommended EGD and colonoscopy to evaluate his GI tract for sources of bleeding. This has been discussed with the patient at length. Risks/benefits discussed, informed consent obtained, and all questions answered.
[2019-03-23] MEDS ORDERED: ONDANSETRON HCL INJ/PF 4 MG/2 ML SDV IV PRN (10:27)
--- NOTE | 2019-03-23 17:19 | Progress Note ---
Provider Note Provider Note: Patient was admitted because of the stools as well is vomiting bright red blood. Patient has been seen by general surgery and will be scheduled for an upper and lower endoscopy H&H will be rechecked in the morning UGD and colonoscopy done today
--- NOTE | 2019-03-23 21:24 | Operative Report ---
Nonrecallable Operative Report DATE OF SURGERY: 03/23/19 PREOPERATIVE DIAGNOSIS: Anemia and melena POSTOPERATIVE DIAGNOSIS: 1. Large antral gastric ulcer. 2. Severe gastritis. 3. Small colon polyp. OPERATION: 1. EGD with biopsy. 2. Colonoscopy to the cecum. 3. Hot biopsy of colon polyp. 4. Pandiverticulosis SURGEON: ANJANA LUU ANESTHESIA: LMAC TISSUE REMOVED OR ALTERED: 1. Antral biopsy. 2. Margin of gastric ulcer biopsy. 3. Bed of gastric ulcer biopsy. 4. Colon polyp at 75 cm, removed via hot biopsy forceps in its entirety. COMPLICATIONS: None apparent ESTIMATED BLOOD LOSS: Minimal PROCEDURE: Drains/implants: None. Procedure in detail: After informed consent was obtained, the patient was brought into the operating room and laid in the left lateral decubitus position. The endoscope was inserted into the oropharynx, and passed down the esophagus. It was passed through the hiatus and into the stomach. The stomach was insufflated with air. Immediately there is noted to be severe gastritis throughout the stomach. There was a large gastric ulcer found in the antrum. The scope was pushed through the pylorus and into the first and second portions of the duodenum. The pylorus appeared to be mildly stenotic, however the scope passed through it easily. The scope was withdrawn back into the antrum of the stomach. The distal antrum was biopsied for H. pylori., The scope was withdrawn in order to visualize the ulcer. Photodocumentation was obtained. Biopsies were taken around the margin of the ulcer, as well as in the bed of the ulcer. The scope was then withdrawn into the gastric body. A retroflexion maneuver was performed, noting no significant hiatal hernias. The scope was then straightened, air was suctioned from the stomach, the scope was then removed up the esophagus. The esophagus was inspected. It was free of any evidence of reflux esophagitis, or other abnormalities throughout the length of the entire esophagus. The scope was then removed from the oropharynx, and this portion of the procedure was concluded. The colonoscope was then inserted into the rectum. It was passed up the rectum, sigmoid colon, descending colon, across the transverse colon, down the ascending colon, and into the cecum. The ileocecal valve and appendiceal orifice were identified. The scope was then withdrawn, circumferentially noting the mucosa. The prep was good. The scope was withdrawn past the ascending colon, transverse colon, into the descending colon. At approximately 75 cm a small, somewhat sessile polyp was identified. It was removed in its entirety via hot biopsy forcep. The scope was then withdrawn down through the descending and sigmoid colon. The rectum was reached. A retroflexion maneuver was performed in the rectum, noting no internal hemorrhoids. Please note that throughout the colonoscopy large diverticula were scattered throughout the colon. The scope was straightened, air was suctioned from the rectum, the scope was removed, and the procedure was concluded. All sponge, instrument, and needle counts were correct. Condition: Stable.
--- NOTE | 2019-03-23 21:26 | Progress Note ---
Provider Note Provider Note: This a 58-year-old male who is status post EGD and colonoscopy today. He was found to have a large nonbleeding gastric ulcer. Recommend cessation of all NSAIDs, steroids, alcohol, nicotine, caffeine, and soda pop. The patient should also be discharged with a PPI daily. He should follow-up at [facility] in 2 to 4 weeks to review his pathology. The patient will need a repeat upper endoscopy in approximately 6 to 8 weeks. Surgery will see the patient again as needed. Please renotify with any questions or concerns.
[2019-03-24] MEDS: NORMAL SALINE 100 ML with PANTOPRAZOLE SODIUM 80 MG IV PRN ×2 (03:16)
[2019-03-24 04:44] LABS: ABSOLUTE EOSINOPHILS # (AUTO) 0.2 10^3/uL (0.0-0.6); ABSOLUTE LYMPHOCYTES (AUTO) 1.5 10^3/uL (0.5-4.7); ABSOLUTE MONOCYTES (AUTO) 0.6 10^3/uL (0.1-1.4); ABSOLUTE NEUT (AUTO) 5.5 10^3/uL (1.7-8.2); BASOPHILS % (AUTO) 0.6 % (0-2); EOSINOPHILS % (AUTO) 2.3 % (0-6); LYMPHOCYTES % (AUTO) 19.5 % (13-45); MEAN CORPUSCULAR HEMOGLOBIN 31.8 pg (27.0-33.4); MEAN CORPUSCULAR HGB CONC 34.3 g/dL (32.0-36.0); MEAN CORPUSCULAR VOLUME 93 fl (80-97); MONOCYTES % (AUTO) 7.3 % (3-13); PLATELET COUNT 194 10^3/uL (150-450); RED BLOOD COUNT 2.16 10^6/uL (4.35-5.55); RED CELL DISTRIBUTION WIDTH 14.4 % (11.5-14.0); SEGMENTED NEUTROPHILS % (AUTO) 70.3 % (42-78); TOTAL CELLS COUNTED % (AUTO) 100 %; WHITE BLOOD COUNT 7.8 10^3/uL (4.0-10.5)
[2019-03-24 04:53] LABS: HEMOGLOBIN 6.9 g/dL (13.5-17.0)
[2019-03-24 05:11] LABS: ANION GAP 5 (5-19); BLOOD UREA NITROGEN 6 mg/dL (7-20); CALCIUM 8.9 mg/dL (8.4-10.2); CARBON DIOXIDE 24 mmol/L (22-30); CHLORIDE 112 mmol/L (98-107); GLUCOSE 94 mg/dL (75-110)
[2019-03-24] MEDS ORDERED: DIPHENHYDRAMINE HCL 25 MG CAPSULE PO PRN (08:49)
[2019-03-24] MEDS ORDERED: NORMAL SALINE 250 ML IV PRN ×2 (08:49)
[2019-03-24] MEDS ORDERED: ACETAMINOPHEN 325 MG TABLET PO PRN (08:49)
--- NOTE | 2019-03-24 08:56 | PDOC PROGRESS REPORT ---
Subjective Progress Note for:: 03/24/19 Subjective:: 03/24/2019-no complaints Reason For Visit: GI BLEED ANEMIA Physical Exam Vital Signs: Temp Pulse Resp BP Pulse Ox 99.0 F 74 16 125/56 L 98 03/23/19 23:13 03/24/19 07:27 03/23/19 23:13 03/23/19 23:13 03/23/19 23:13 Intake & Output 03/23/19 03/24/19 03/25/19 06:59 06:59 06:59 Intake Total 2150 3516 Balance 2150 3516 Weight 69.4 kg 72.2 kg General appearance: PRESENT: no acute distress, well-developed, well-nourished Neck exam: ABSENT: carotid bruit, JVD, lymphadenopathy, thyromegaly Respiratory exam: PRESENT: clear to auscultation mary. ABSENT: rales, rhonchi, wheezes Cardiovascular exam: PRESENT: RRR. ABSENT: diastolic murmur, rubs, systolic murmur Pulses: PRESENT: normal dorsalis pedis pul Vascular exam: PRESENT: normal capillary refill GI/Abdominal exam: PRESENT: normal bowel sounds, soft. ABSENT: distended, guarding, mass, organolmegaly, rebound, tenderness Extremities exam: PRESENT: full ROM. ABSENT: calf tenderness, clubbing, pedal edema Neurological exam: PRESENT: alert, awake, oriented to person, oriented to place, oriented to time, oriented to situation, CN II-XII grossly intact. ABSENT: motor sensory deficit Psychiatric exam: PRESENT: appropriate affect, normal mood. ABSENT: homicidal ideation, suicidal ideation Skin exam: PRESENT: dry, intact, warm. ABSENT: cyanosis, rash Results Laboratory Results: 03/24/19 04:23 03/24/19 04:23 03/22/19 03/24/19 03/24/19 11:00 04:23 04:23 WBC 7.8 RBC 2.16 L Hgb 6.9 L Hct 20.0 L MCV 93 MCH 31.8 MCHC 34.3 RDW 14.4 H Plt Count 194 Seg Neutrophils % 70.3 Sodium 140.6 Potassium 4.0 Chloride 112 H Carbon Dioxide 24 Anion Gap 5 BUN 6 L Creatinine 0.84 Est GFR ( Amer) > 60 Glucose 94 Calcium 8.9 Blood Type O POSITIVE Antibody Screen NEGATIVE 03/22/19 11:00 Troponin I < 0.012 Impressions: Chest X-Ray 03/22/19 16:23 IMPRESSION: NO ACUTE RADIOGRAPHIC FINDING IN THE CHEST. Assessment and Plan - Diagnosis (1) Acute GI bleeding Is this a current diagnosis for this admission?: Yes Plan: Likely acute on chronic upper GI bleed such as alcoholic gastritis however tobacco and weight loss concerning for underlying malignancy, IV Protonix ordere d, n.p.o., follow-up anemia labs, serial CBC, surgical consult for endoscopy. Transfuse hemoglobin as needed less than 7 03/24/2019-patient underwent colonoscopy yesterday found one small polyp. Dhruv wiley does seem to have a slight worsening anemia this morning his hemoglobin 6.9. I will transfuse 1 packed unit of packed cells repeat CBC this afternoon at 5:00 and again in the morning for stability. Continue Protonix (2) Anemia Qualifiers: Anemia type: unspecified type Qualified Code(s): D64.9 - Anemia, unspecified Is this a current diagnosis for this admission?: Yes Plan: Likely secondary to #1, follow-up anemia labs 03/24/2019-see #1 (3) ETOH abuse Is this a current diagnosis for this admission?: Yes Plan: Thiamine, folate, no history of alcohol withdrawal 03/24/2019 continue to educate about alcohol cessation (4) Smoker Is this a current diagnosis for this admission?: Yes Plan: Declines nicotine replacement, tobacco cessation counseling provided. 03/24/2019-continue to educate about smoking cessation (5) Weight loss Is this a current diagnosis for this admission?: Yes Plan: If endoscopy does not reveal an etiology consider screening chest CT for 50 pack years of smoking. 03/24/2019-obtain CT of the chest to rule out neoplasm as source for weight loss - Time Time Spent with patient: 15-24 minutes
--- NOTE | 2019-03-24 11:04 | RADIOLOGY REPORT (SQ) ---
EXAM DESCRIPTION: CT CHEST WITH COMPLETED DATE/TIME: 03/24/2019 10:02 am REASON FOR STUDY: Weight loss 50 pack/year smoking history COMPARISON: PA and lateral views of the chest from 03/22/2019 TECHNIQUE: CT scan of the chest performed using helical scanning technique with dynamic intravenous contrast injection. Images reviewed with lung, soft tissue and bone windows. Reconstructed coronal and sagittal MPR and MIP images reviewed. All images stored on PACS. All CT scanners at this facility use dose modulation, iterative reconstruction, and/or weight based d osing when appropriate to reduce radiation dose to as low as reasonably achievable (ALARA). [facility]: Dose Right [facility]: CareDose [facility]: Dose Right [facility]: Teradose 4D [facility]: Skigit CONTRAST TYPE AND DOSE: Contrast/concentration: Isovue 350.00 mg/ml; Total Contrast Delivered: 80.0 ml; Total Saline Delivered: 55.0 ml RENAL FUNCTION: Creatinine 0.84 mg per dL. RADIATION DOSE: CT Rad equipment meets quality standard of care and radiation dose reduction techniq ues were employed. CTDIvol: 6.6 mGy. DLP: 280 mGy-cm. . LIMITATIONS: None. FINDINGS: LUNGS AND PLEURA: The trachea and main bronchi are patent. There is mild bronchial wall t hickening without bronchiectasis or bronchiolectasis. There are patchy centrilobular nodular opaciti es in the lingula (image 64 of series 4) that could represent part of an infectious process with bron chogenic dissemination. There is no pulmonary nodule or mass. There is no pleural fluid, thickening or calcification. HILAR AND MEDIASTINAL STRUCTURES: No mediastinal or hilar adenopathy. HEART AND VASCULAR STRUCTURES: Standard 3 vessel arch. No thoracic aortic dissection or aneurysm. T he left ventricle is enlarged. There is mild atherosclerotic calcification of the aortic valve leafl ets and aortic arch. There is no pericardial effusion. HARDWARE: None in the chest. UPPER ABDOMEN: No abnormality. THYROID AND OTHER SOFT TISSUES: No masses or adenopathy. BONES: No acute findings. OTHER: No other finding. IMPRESSION: Patchy centrilobular nodular opacities in the lingula (image 64 series 4) could represen t part of an infectious process with bronchogenic dissemination. Clinical correlation is recommended . TECHNICAL DOCUMENTATION: JOB ID: [id number] Quality ID # [id number]: Final reports with documentation of one or more dose reduction techniques (e.g., Au tomated exposure control, adjustment of the mA and/or kV according to patient size, use of iterative reconstruction technique) 2010 [employer]- All Rights Reserved Reading location - IP/workstation name: [email or web address]
[2019-03-24 17:18] LABS: ABSOLUTE EOSINOPHILS # (AUTO) 0.2 10^3/uL (0.0-0.6); ABSOLUTE LYMPHOCYTES (AUTO) 1.6 10^3/uL (0.5-4.7); ABSOLUTE MONOCYTES (AUTO) 0.7 10^3/uL (0.1-1.4); ABSOLUTE NEUT (AUTO) 5.7 10^3/uL (1.7-8.2); BASOPHILS % (AUTO) 0.5 % (0-2); EOSINOPHILS % (AUTO) 2.2 % (0-6); HEMATOCRIT 24.8 % (37.9-51.0); HEMOGLOBIN 8.5 g/dL (13.5-17.0); LYMPHOCYTES % (AUTO) 19.7 % (13-45); MEAN CORPUSCULAR HEMOGLOBIN 31.5 pg (27.0-33.4); MEAN CORPUSCULAR HGB CONC 34.3 g/dL (32.0-36.0); MEAN CORPUSCULAR VOLUME 92 fl (80-97); PLATELET COUNT 210 10^3/uL (150-450); RED CELL DISTRIBUTION WIDTH 14.6 % (11.5-14.0); SEGMENTED NEUTROPHILS % (AUTO) 69.6 % (42-78); TOTAL CELLS COUNTED % (AUTO) 100 %; WHITE BLOOD COUNT 8.2 10^3/uL (4.0-10.5)
[2019-03-24] MEDS: PANTOPRAZOLE SODIUM 40 MG VIAL IV SCH (22:28)
[2019-03-25 07:50] LABS: HEMOGLOBIN 8.3 g/dL (13.5-17.0); MEAN CORPUSCULAR HEMOGLOBIN 31.7 pg (27.0-33.4); MEAN CORPUSCULAR HGB CONC 34.6 g/dL (32.0-36.0); MEAN CORPUSCULAR VOLUME 92 fl (80-97); PLATELET COUNT 221 10^3/uL (150-450); RED BLOOD COUNT 2.62 10^6/uL (4.35-5.55); RED CELL DISTRIBUTION WIDTH 14.6 % (11.5-14.0); WHITE BLOOD COUNT 6.6 10^3/uL (4.0-10.5)
--- NOTE | 2019-03-25 09:22 | PDOC DISCHARGE SUMMARY ---
Impression - Admit/DC Date/PCP Admission Date/Primary Care Provider: 03/22/19 19:48 Discharge Date: 03/25/19 - Discharge Diagnosis (1) Acute GI bleeding Is this a current diagnosis for this admission?: Yes (2) Anemia Is this a current diagnosis for this admission?: Yes (3) ETOH abuse Is this a current diagnosis for this admission?: Yes (4) Smoker Is this a current diagnosis for this admission?: Yes (5) Weight loss Is this a current diagnosis for this admission?: Yes - Additional Information Resuscitation Status: Full Code Discharge Diet: As Tolerated Discharge Activity: Activity As Tolerated [facility]errals: [facility] [Other] [facility] [Provider Group] ([place] [facility] [address] [place] [address] ) Prescriptions: Pantoprazole Sodium [Protonix [address] Tablet] 40 mg PO BID #60 tablet. Home Medications: Pantoprazole Sodium [Protonix [address] Tablet] 40 mg PO BID #60 tablet. 03/25/19 History of Present Illiness History of Present Illness: MARCO GILES is a 58 year old male who presented to the ER with black stools. Hospital Course Hospital Course: Patient very pleasant 60-year-old gentleman presented to the ER with a past m edical history of alcohol tobacco abuse and chronic dyspepsia. Patient noted a single episode of vomiting bright red blood. Patient was scoped was found to have 1 singular polyp which was removed. Patient did have a hemoglobin 6.9 yesterday and transfuse 1 packed unit cells. Today's hemoglobin 8.3 and stable. I will send patient home on Protonix 40 g p.o. twice daily and have him follow- up with surgical clinic in 2 weeks. Patient has been educated to plan of care and is agreement. Physical Exam Vital Signs: Temp Pulse Resp BP Pulse Ox 97.9 F 76 18 118/74 100 03/25/19 03:00 03/25/19 07:00 03/25/19 03:00 03/25/19 03:00 03/25/19 03:00 Intake & Output 03/24/19 03/25/19 03/26/19 06:59 06:59 06:59 Intake Total 3516 1759 Output Total 1550 Balance 3516 209 Weight 72.2 kg 72.1 kg General appearance: PRESENT: no acute distress, well-developed, well-nourished Head exam: PRESENT: atraumatic, normocephalic Eye exam: PRESENT: conjunctiva pink, EOMI, PERRLA. ABSENT: scleral icterus Ear exam: PRESENT: normal external ear exam Mouth exam: PRESENT: moist, tongue midline Neck exam: ABSENT: carotid bruit, JVD, lymphadenopathy, thyromegaly Respiratory exam: PRESENT: clear to auscultation mary. ABSENT: rales, rhonchi, wheezes Cardiovascular exam: PRESENT: RRR. ABSENT: diastolic murmur, rubs, systolic murmur Pulses: PRESENT: normal dorsalis pedis pul Vascular exam: PRESENT: normal capillary refill GI/Abdominal exam: PRESENT: normal bowel sounds, soft. ABSENT: distended, guarding, mass, organolmegaly, rebound, tenderness Rectal exam: PRESENT: deferred Extremities exam: PRESENT: full ROM. ABSENT: calf tenderness, clubbing, pedal edema Neurological exam: PRESENT: alert, awake, oriented to person, oriented to place, oriented to time, oriented to situation, CN II-XII grossly intact. ABSENT: motor sensory deficit Psychiatric exam: PRESENT: appropriate affect, normal mood. ABSENT: homicidal ideation, suicidal ideation Skin exam: PRESENT: dry, intact, warm. ABSENT: cyanosis, rash Results Laboratory Results: WBC 6.6 10^3/uL (4.0-10.5) 03/25/19 06:18 RBC 2.62 10^6/uL (4.35-5.55) L 03/25/19 06:18 Hgb 8.3 g/dL (13.5-17.0) L 03/25/19 06:18 Hct 24.0 % (37.9-51.0) L 03/25/19 06:18 MCV 92 fl (80-97) 03/25/19 06:18 MCH 31.7 pg (27.0-33.4) 03/25/19 06:18 MCHC 34.6 g/dL (32.0-36.0) 03/25/19 06:18 RDW 14.6 % (11.5-14.0) H 03/25/19 06:18 Plt Count 221 10^3/uL (150-450) 03/25/19 06:18 Lymph % (Auto) 19.7 % (13-45) 03/24/19 16:59 [place] % (Auto) 8.0 % (3-13) 03/24/19 16:59 Eos % (Auto) 2.2 % (0-6) 03/24/19 16:59 Baso % (Auto) 0.5 % (0-2) 03/24/19 16:59 Reticulocyte # 0.038 10^6/uL (0.028-0.122) 03/22/19 17:23 Absolute Neuts (auto) 5.7 10^3/uL (1.7-8.2) 03/24/19 16:59 Absolute Lymphs (auto) 1.6 10^3/uL (0.5-4.7) 03/24/19 16:59 Absolute Monos (auto) 0.7 10^3/uL (0.1-1.4) 03/24/19 16:59 Absolute Eos (auto) 0.2 10^3/uL (0.0-0.6) 03/24/19 16:59 Absolute Basos (auto) 0.0 10^3/uL (0.0-0.2) 03/24/19 16:59 Seg Neutrophils % 69.6 % (42-78) 03/24/19 16:59 Retic Count (auto) 1.43 % (0.66-2.85) 03/22/19 17:23 PT 13.7 SEC (11.4-15.4) 03/22/19 11:00 INR 1.05 03/22/19 11:00 APTT 31.8 SEC (23.5-35.8) 03/22/19 11:00 Sodium 140.6 mmol/L (137-145) 03/24/19 04:23 Potassium 4.0 mmol/L (3.6-5.0) 03/24/19 04:23 Chloride 112 mmol/L (98-107) H 03/24/19 04:23 Carbon Dioxide 24 mmol/L (22-30) 03/24/19 04:23 Anion Gap 5 (5-19) 03/24/19 04:23 BUN 6 mg/dL (7-20) L 03/24/19 04:23 Creatinine 0.84 mg/dL (0.52-1.25) 03/24/19 04:23 Est GFR ( Amer) > 60 (>60) 03/24/19 04:23 Est GFR (MDRD) Non-Af > 60 (>60) 03/24/19 04:23 Glucose 94 mg/dL (75-110) 03/24/19 04:23 Calcium 8.9 mg/dL (8.4-10.2) 03/24/19 04:23 Iron 61.7 ug/dL (49-181) 03/22/19 17:23 TIBC 277 ug/dL (250-450) 03/22/19 17:23 % Saturation 22 % 03/22/19 17: Ferritin 52.10 ng/mL (17.9-464.0) 03/22/19 17:23 Total Bilirubin 0.3 mg/dL (0.2-1.3) 03/22/19 11:00 Direct Bilirubin 0.1 mg/dL (0.0-0.4) 03/22/19 11:00 Neonat Total Bilirubin Not Reportable 03/22/19 11:00 Neonat Direct Bilirubin Not Reportable 03/22/19 11:00 Neonat Indirect Bili Not Reportable 03/22/19 11:00 AST 30 U/L (17-59) 03/22/19 11:00 ALT 26 U/L (<50) 03/22/19 11:00 Alkaline Phosphatase 63 U/L (38-126) 03/22/19 11:00 Troponin I < 0.012 ng/mL 03/22/19 11:00 Total Protein 6.7 g/dL (6.3-8.2) 03/22/19 11:00 Albumin 3.7 g/dL (3.5-5.0) 03/22/19 11:00 Lipase 78.6 U/L (23-300) 03/22/19 11:00 Vitamin B12 317.0 pg/mL (239-931) 03/22/19 17:23 Folate 15.70 ng/mL (>2.76) 03/22/19 17:23 Urine Color YELLOW 03/22/19 11:00 Urine Appearance CLOUDY 03/22/19 11:00 Urine pH 8.0 (5.0-9.0) 03/22/19 11:00 Ur Specific [place] 1.024 03/22/19 11:00 Urine Protein 30 mg/dL (NEGATIVE) H 03/22/19 11:00 Urine Glucose (UA) NEGATIVE mg/dL (NEGATIVE) 03/22/19 11:00 Urine Ketones NEGATIVE mg/dL (NEGATIVE) 03/22/19 11:00 Urine Blood NEGATIVE (NEGATIVE) 03/22/19 11:00 Urine Nitrite NEGATIVE (NEGATIVE) 03/22/19 11:00 Urine Bilirubin NEGATIVE (NEGATIVE) 03/22/19 11:00 Urine Urobilinogen 2.0 mg/dL (<2.0) H 03/22/19 11:00 Ur Leukocyte Esterase NEGATIVE (NEGATIVE) 03/22/19 11:00 Urine WBC (Auto) 1 /HPF 03/22/19 11:00 Urine RBC (Auto) 0 /HPF 03/22/19 11:00 Amorphous Sediment Auto TRACE /HPF 03/22/19 11:00 Urine Mucus (Auto) RARE /LPF 03/22/19 11:00 Urine Ascorbic Acid NEGATIVE (NEGATIVE) 03/22/19 11:00 Blood Type O POSITIVE 03/22/19 11:00 Blood Type Confirm O POSITIVE 03/24/19 10:30 Antibody Screen NEGATIVE 03/22/19 11:00 Crossmatch See Detail 03/22/19 11:00 03/22/19 11:00 Troponin I < 0.012 Impressions: Chest X-Ray 03/22/19 16:23 IMPRESSION: NO ACUTE RADIOGRAPHIC FINDING IN THE CHEST. Chest CT 03/24/19 00:00 IMPRESSION: Patchy centrilobular nodular opacities in the lingula (image 64 series 4) could represent part of an infectious process with bronchogenic dissemination. Clinical correlation is recommended. Plan Time Spent: Greater than 30 Minutes Stroke Is this a Stroke Patient?: No Acute Heart Failure - Is this a Heart Failure Patient?: No
[2019-03-25] MEDS: PANTOPRAZOLE SODIUM 40 MG VIAL IV SCH (10:02)
[2019-03-25 10:27] VITALS: BP 125/65
== END 2019-03-25 11:00 | disposition home or self-care (01) ==
LOC: ER 10:17 → EH 19:48 → 4N 21:30
PROVIDERS: ADMIT Internal Medicine; ATTEND Internal Medicine
DX: K92.0 Hematemesis (principal); K29.50 Unspecified chronic gastritis without bleeding; B96.81 Helicobacter pylori [H. pylori] as the cause of diseases classified elsewhere; K25.9 Gastric ulcer, unspecified as acute or chronic, without hemorrhage or perforation; D12.6 Benign neoplasm of colon, unspecified; D64.9 Anemia, unspecified; R63.4 Abnormal weight loss; K92.1 Melena; F10.10 Alcohol abuse, uncomplicated; K57.90 Diverticulosis of intestine, part unspecified, without perforation or abscess without bleeding; F17.200 Nicotine dependence, unspecified, uncomplicated; R09.89 Other specified symptoms and signs involving the circulatory and respiratory systems
CPT/HCPCS: 93005; 99285; 96374; 96375; 43239; 45384; 86900; 86901; 36415 ×4; 36430; 86850; 82607; 82728; 82746; 83540; 83550; 83690; 85025 ×3; 85027; 85610; 85730; 85045; 80048 ×2; 80053; 81001; 84484; 86920; 88342 ×2; 88305 ×2; 71046; 71260; 93010; 94640; 00813; G0378 ×5; P9016; J3490 ×3; J2270; J1170; C9113 ×4; J7050 ×2; J7030 ×2; J2704; J7620; 813

== ENCOUNTER → 2020-01-03 | Emergency (ER) | payer SELFPAY ==
[~2020-01-03] MED LIST: FAMOTIDINE INJ/PF 20 MG/2 ML SDV IV ONE; FOLIC ACID INJ 5 MG/1 ML 10 ML VIAL ONE; NORMAL SALINE 1000 ML 1,000 ML IV ONE; NORMAL SALINE 250 ML IV PRN; ONDANSETRON HCL INJ/PF 4 MG/2 ML SDV IV ONE; PANTOPRAZOLE SODIUM 40 MG VIAL IV ONE; SUCRALFATE 1 GM TABLET PO ONE; THIAMINE HCL 100 MG, FOLIC ACID 1 MG in NORMAL SALINE 250 ML IV ONE; THIAMINE HCL INJ 200 MG/2 ML VIAL ONE
--- NOTE | 2020-01-03 20:05 | ER Document Report ---
ED General - General Stated Complaint: VOMITING Time Seen by Provider: 01/03/20 20:03 Mode of Arrival: Ambulatory Information source: Patient Notes: 01/03/20 19:52 - ED Nursing Note by ANGIE GONZALEZINE Accjuice Num: [id number] : 1960 Patient Age: 59 Per EMS, pt has been vomiting "bright red blood" x2 days. PT reports hx of stomach ulcers. EMS place 18g IV in L AC and administer 1 liter of fluids in route to ED. Pt reports feeling lightheaded when standing, but denies syncopal episode. EMS report VSS in route. Pt is brought to triage via wheelchair MY NOTES today 59-year-old male arrives with chief complaint of abdominal pain. Patient has a history of GI bleed and alcohol gastritis [place] [address] Shamir Yoon and was seen [address] Oliver. Patient reports he has black stools and vomiting blood twice last night. Symptoms have been present for more than 24 hours. His tongue is white and his mucous membranes of the eyes are pale. Patient has tachycardia. He has been taking [place] for his bili. He was given blood last year. He is a drinker of Budweiser beer. He does not like whiskey or wine. He does not quantify the amount of Budweiser he drinks per day. TRAVEL OUTSIDE OF THE [place] IN LAST 30 DAYS: No - HPI Onset: This morning Onset/Duration: Sudden Severity: Moderate Pain Level: 2 Associated symptoms: Nausea, Vomiting, Weakness Exacerbated by: Movement, Walking, Food Relieved by: Remaining still Similar symptoms previously: Yes Recently seen / treated by doctor: No - Related Data Allergies/Adverse Reactions: No Known Allergies Allergy (Verified 01/03/20 21:10) Past Medical History - General Information source: Patient - Social History Smoking Status: Former Smoker Cigarette use (# per day): No Chew tobacco use (# tins/day): No Smoking Education Provided: No Frequency of alcohol use: Heavy Drug Abuse: None Lives with: Family Family History: None, Reviewed & Not Pertinent Patient has suicidal ideation: No Patient has homicidal ideation: No - Past Medical History Cardiac Medical History: Denies: Hx Congestive Heart Failure, Hx Heart Attack, Hx Hypertension Pulmonary Medical History: Denies: Hx Asthma, Hx Bronchitis, Hx COPD, Hx Pneumonia, Hx Tuberculosis Neurological Medical History: Denies: Hx Seizures, Hx Parkinson's Disease Renal/ Medical History: Denies: Hx Benign Prostatic Hyperplasia, Hx End Stage Renal Disease, Hx Kidney Stones GI Medical History: Reports: Hx Ulcer. Denies: Hx Cirrhosis, Hx Gastroesophageal Reflux Disease Musculoskeletal Medical History: Denies Hx Arthritis, Denies Hx Multiple Sclerosis Psychiatric Medical History: Denies: Hx Bipolar Disorder, Hx Depression, Hx Schizophrenia - Immunizations Hx Diphtheria, Pertussis, Tetanus Vaccination: Yes Review of Systems - Review of Systems Constitutional: See HPI, Weakness EENT: No symptoms reported Cardiovascular: See HPI, Palpitations, Dizziness, Lightheaded Respiratory: See HPI, Short of breath Gastrointestinal: See HPI, Abdominal pain, Nausea, Vomiting, Black stools Genitourinary: No symptoms reported Male Genitourinary: No symptoms reported Musculoskeletal: No symptoms reported Skin: No symptoms reported Hematologic/Lymphatic: No symptoms reported Neurological/Psychological: No symptoms reported Physical Exam - Vital signs Vitals: Temp Pulse Resp BP Pulse Ox 98.6 F 92 18 125/56 L 98 01/03/20 19:59 01/03/20 19:59 01/03/20 19:59 01/03/20 19:59 01/03/20 19:59 Interpretation: Tachycardic - HEENT Head: Normocephalic, Atraumatic Eyes: Normal Pupils: PERRL Ears: Normal Sinus: Normal Nasal: Normal Mouth/Lips: Normal Mucous membranes: Moist, Other - pale Pharynx: Other - Pale tongue Neck: Normal - Respiratory Respiratory status: No respiratory distress Chest status: Nontender Breath sounds: Normal Chest palpation: Normal - Cardiovascular Rhythm: Tachycardia - Abdominal Inspection: Normal Distension: No distension Bowel sounds: Hyperactive Tenderness: Nontender Organomegaly: No organomegaly - Rectal Tenderness: No Stool: Heme positive, Black - Genitourinary Tenderness: Nontender - Back Back: Normal - Extremities General upper extremity: Normal inspection General lower extremity: Normal inspection - Neurological Neuro grossly intact: Yes Cognition: Normal Orientation: AAOx4 Shane Coma Scale Eye Opening: Spontaneous [place] Coma Scale Verbal: Oriented [place] Coma Scale Motor: Obeys Commands Shane Coma Scale Total: 15 Speech: Normal Motor strength normal: LUE, RUE, LLE, RLE Sensory: Normal - Psychological Associated symptoms: Normal affect - Skin Skin Temperature: Warm Skin Moisture: Dry Course - Vital Signs Vital signs: Temp Pulse Resp BP Pulse Ox 98.6 F 88 14 119/63 100 01/03/20 22:30 01/03/20 22:54 01/03/20 22:23 01/03/20 22:30 01/03/20 22:30 - Laboratory Result Diagrams: 01/03/20 20:28 01/03/20 20:28 Laboratory results interpreted by me: 01/03/20 01/03/20 01/03/20 20:28 20:28 21:00 RBC 1.60 L Hgb 5.3 L Hct 15.5 L RDW 14.5 H Lymph % (Auto) 8.5 L Seg Neutrophils % 85.7 H Potassium 3.5 L Chloride 111 H Anion Gap 3 L BUN 30 H Calcium 7.7 L Total Protein 4.9 L Albumin 2.6 L Crossmatch See Detail - Diagnostic Test Radiology reviewed: Reports reviewed - Moderate stool on KUB - EKG Interpretation by Me EKG shows normal: Sinus rhythm - EKG with [address] elevation no ST depression no T wave elevation no T wave depression and axis within normal limits. Rate: Normal Rhythm: NSR Critical Care Note - Critical Care Note Comments: I spoke with Dr. Savage at 2099 and he advises shipping this patient out in case patient has esophageal varices as a drinking man. I discussed case with patient for second time. He initially advises he "wont be admitted here but wanted to go home". I again spoke with patient at 2110 and he advises he will go home after getting his blood. I advised him to return to ER if symptoms persist. His convinced him around 2219 to be admitted to the hospital. Unfortunately we have no GI specialist here. We attempted to get him at [facility] but according to transfer specialists at [facility] they were on regional diversion. This was at 2254 and returned call with [facility] GI specialist at 2299. There are no beds at all at this facility. We also called Sirena at [facility] who is patient financial services specialist there at 225. She advises there is no beds there at all as well. Sirena called back at 230 and advises she spoke with Dr. Abbott but there are no beds or availability for transfer. I spoke with Iban at [facility] at 2314 and he advises he will speak with GI doc about admission and transfer. I spoke with Dr. Ari Winters networking technology instructor at 2320 he accepted the patient. I spoke with the ospitalist Dr. George. He accepted patient as well. Discharge - Discharge Clinical Impression: ETOH abuse, Acute GI bleeding Condition: Good Disposition: [facility] Prescriptions: Sucralfate [Carafate 1 gm Tablet] 1 gm PO ACHS #120 tablet Ondansetron [Zofran Odt 4 mg Tablet] 1 tab PO Q4H PRN #15 tab.rapdis PRN Reason: For Nausea/Vomiting
[2020-01-03 20:53] LABS: ABSOLUTE LYMPHOCYTES (AUTO) 0.7 10^3/uL (0.5-4.7); ABSOLUTE MONOCYTES (AUTO) 0.4 10^3/uL (0.1-1.4); ABSOLUTE NEUT (AUTO) 6.6 10^3/uL (1.7-8.2); BASOPHILS % (AUTO) 0.3 % (0-2); EOSINOPHILS % (AUTO) 0.2 % (0-6); HEMATOCRIT 15.5 % (37.9-51.0); LYMPHOCYTES % (AUTO) 8.5 % (13-45); MEAN CORPUSCULAR HEMOGLOBIN 33.1 pg (27.0-33.4); MEAN CORPUSCULAR VOLUME 97 fl (80-97); MONOCYTES % (AUTO) 5.3 % (3-13); PLATELET COUNT 243 10^3/uL (150-450); RED CELL DISTRIBUTION WIDTH 14.5 % (11.5-14.0); SEGMENTED NEUTROPHILS % (AUTO) 85.7 % (42-78); TOTAL CELLS COUNTED % (AUTO) 100 %; WHITE BLOOD COUNT 7.7 10^3/uL (4.0-10.5)
[2020-01-03 20:55] LABS: HEMOGLOBIN 5.3 g/dL (13.5-17.0)
[2020-01-03 21:14] LABS: ALBUMIN 2.6 g/dL (3.5-5.0); ALKALINE PHOSPHATASE 41 U/L (38-126); ASPARTATE AMINO TRANSFERASE 22 U/L (17-59); BILIRUBIN,DIRECT 0.2 mg/dL (0.0-0.4); BILIRUBIN,TOTAL 0.2 mg/dL (0.2-1.3); BLOOD UREA NITROGEN 30 mg/dL (7-20); CALCIUM 7.7 mg/dL (8.4-10.2); GLUCOSE 110 mg/dL (75-110); POTASSIUM 3.5 mmol/L (3.6-5.0); TOTAL PROTEIN 4.9 g/dL (6.3-8.2)
[2020-01-03 21:19] LABS: CARBON DIOXIDE 27 mmol/L (22-30); CHLORIDE 111 mmol/L (98-107)
[2020-01-03 21:23] LABS: ALCOHOL < 10 mg/dL (NONE DETECTED); ANION GAP 3 (5-19); TROPONIN I 0.015 ng/mL
[2020-01-03] MEDS: NORMAL SALINE 250 ML IV PRN (22:32)
[2020-01-03 23:09] LABS: APPEARANCE,URINE CLEAR; BILIRUBIN,URINE NEGATIVE (NEGATIVE); COLOR,URINE STRAW; GLUCOSE, URINE NEGATIVE (NEGATIVE); KETONES,URINE NEGATIVE (NEGATIVE); LEUKOCYTE ESTERASE,URINE NEGATIVE (NEGATIVE); NITRITE,URINE NEGATIVE (NEGATIVE); PROTEIN,URINE NEGATIVE (NEGATIVE); URINE SPECIFIC GRAVITY 1.016; UROBILINOGEN,URINE NEGATIVE mg/dL (<2.0)
--- NOTE | 2020-01-03 23:15 | RADIOLOGY REPORT (SQ) ---
EXAM DESCRIPTION: XR ABDOMEN 1 VIEW (KUB) COMPLETED DATE/TME: 01/03/2020 22:15 CLINICAL HISTORY: 59 years, Male, gi bleed EXAM DESCRIPTION: CLINICAL HISTORY: gi bleed COMPARISON: None. FINDINGS: Two view of the abdomen was submitted. Calcific density projecting over the left mid abdomen is nonspecific. This is likely lateral to the left kidney. There is no evidence of bowel obstruction. There is no other abnormal calcification within the abdomen. There is no acute osseous process visualized. Moderate stool is in the colon. IMPRESSION: Moderate stool.
[2020-01-03 23:16] LABS: URINE AMPHETAMINES SCREEN NEGATIVE; URINE BARBITURATES SCREEN NEGATIVE; URINE BENZODIAZEPINES SCREEN NEGATIVE; URINE COCAINE SCREEN NEGATIVE; URINE MARIJUANA (THC) SCREEN NEGATIVE; URINE METHADONE SCREEN NEGATIVE; URINE PHENCYCLIDINE SCREEN NEGATIVE
[2020-01-04] MEDS: NORMAL SALINE 250 ML IV PRN (01:38)
[2020-01-04 02:07] VITALS: BP 112/61
--- NOTE | 2020-01-04 08:47 | EKG REPORT ---
SEVERITY:- ABNORMAL ECG - SINUS RHYTHM ABNORMAL T, CONSIDER ISCHEMIA, ANT-LAT LEADS : Confirmed by: David Parish MD 04-Jan-2020 08:47:06
== END | disposition short-term general hospital (02) ==
LOC: ER 19:35
DX: F10.10 Alcohol abuse, uncomplicated (principal); K92.2 Gastrointestinal hemorrhage, unspecified; R11.2 Nausea with vomiting, unspecified; R53.1 Weakness
CPT/HCPCS: 93005; 99285; 96375; 96365; 96366; 86900; 86901; 36415; 36430; 86850; 80307 ×2; 83690; 85025; 80053; 81001; 84484; 86920; 83880; 74018; 93010; P9016; J3490; C9113; J3411; J7050; S0028